=== PATIENT | male | born 1995 | race Caucasian/White ===

== ENCOUNTER 2024-03-05 04:01 | Emergency (ER) | payer SELFPAY ==
[~2024-03-05] VITALS: Ht 172.7 cm; Wt 64.9 kg
[2024-03-05 04:08] VITALS: PULSE 118; O2SAT 97
[2024-03-05 04:10] VITALS: BP 154/94; RESP 16; TEMP 98.3; O2SAT 98
== END 2024-03-05 04:40 | disposition left against medical advice (07) ==
LOC: ER 04:23
DX: R44.0 Auditory hallucinations (principal); Z53.21 Procedure and treatment not carried out due to patient leaving prior to being seen by health care provider